=== PATIENT | male | born 1950 | race Caucasian/White ===

== ENCOUNTER 2017-02-06 07:38 | Day surgery (SDC) | payer MEDICAID, OTHER ==
[2017-02-06] MEDS ORDERED: DUREZOL OPHTH 1 DOSE AFFEYE ONE (08:00)
[2017-02-06] MEDS ORDERED: TETRACAINE 0.5% OPHTH 1 DOSE AFFEYE ONE ×4 (08:01→11:15)
[2017-02-06] MEDS ORDERED: VIGAMOX 0.5% OPHTH 1 DOSE AFFEYE ONE ×5 (08:02→11:27)
[2017-02-06] MEDS ORDERED: PROLENSA OPHTH 1 DOSE AFFEYE ONE (08:13)
[2017-02-06] MEDS ORDERED: ALPHAGAN-P OPHTH 1 DOSE AFFEYE ONE (08:14)
[2017-02-06] MEDS ORDERED: VISINE-A OPHTH 1 DOSE AFFEYE ONE (08:15)
[2017-02-06] MEDS ORDERED: AK-DILATE 2.5% OPHTH 1 DOSE OP ONE ×3 (08:16→08:20)
[2017-02-06] MEDS ORDERED: CYCLOGYL 1% OPHTH 1 DOSE OP ONE ×3 (08:16→08:20)
[2017-02-06] MEDS ORDERED: MYDRIACIL OPHTH 1 DOSE AFFEYE ONE ×3 (08:16→08:20)
[2017-02-06] MEDS ORDERED: NS 500 ML IV 500 ML IV ONE (08:17)
[2017-02-06] MEDS ORDERED: BETADINE OPHTH SOLN 5% EACHEYE ONE (10:50)
[2017-02-06] MEDS ORDERED: ADRENALINE CHL INJ IJ ONE ×2 (11:05→11:15)
[2017-02-06] MEDS ORDERED: DUOVISC IO ONE ×2 (11:06→11:15)
[2017-02-06] MEDS ORDERED: XYLOCAINE-MPF 1% IJ ONE ×2 (11:06→11:15)
[2017-02-06] MEDS ORDERED: BSS OPHTH (PLAIN) 500 ML with VANCOMYCIN HCL 500 MG VIAL 25 MG, ADRENALINE CHL INJ 1 MG IR ONE ×6 (11:06)
[2017-02-06 12:29] VITALS: BP 148/70
[2017-02-06] MEDS ORDERED: DIPRIVAN VIAL ONE (15:34)
== END 2017-02-06 11:50 | disposition home or self-care (01) ==
LOC: SURG1 07:38
PROVIDERS: ATTEND Ophthalmology
PROC: 08RK3JZ Replacement of Left Lens with Synthetic Substitute, Percutaneous Approach (ICD-10-PCS; principal; 2017-02-06 12:45)
PROC: 08DK3ZZ Extraction of Left Lens, Percutaneous Approach (ICD-10-PCS; principal; 2017-02-06 12:45)
DX: H25.12 Age-related nuclear cataract, left eye (principal); H25.042 Posterior subcapsular polar age-related cataract, left eye
CPT/HCPCS: A4217; J0170; J3370; J3490

== ENCOUNTER 2017-02-27 06:46 | Day surgery (SDC) | payer OTHER ==
[2017-02-27] MEDS ORDERED: TETRACAINE 0.5% OPHTH 1 DOSE AFFEYE ONE ×2 (07:35→09:46)
[2017-02-27] MEDS ORDERED: VIGAMOX 0.5% OPHTH 1 DOSE AFFEYE ONE ×3 (07:40→07:50)
[2017-02-27] MEDS ORDERED: PROLENSA OPHTH 1 DOSE AFFEYE ONE (07:51)
[2017-02-27] MEDS ORDERED: ALPHAGAN-P OPHTH 1 DOSE AFFEYE ONE (07:52)
[2017-02-27] MEDS ORDERED: MYDRIACIL OPHTH 1 DOSE AFFEYE ONE ×3 (07:53→07:55)
[2017-02-27] MEDS ORDERED: CYCLOGYL 1% OPHTH 1 DOSE OP ONE ×3 (07:53→07:55)
[2017-02-27] MEDS ORDERED: AK-DILATE 2.5% OPHTH 1 DOSE OP ONE ×3 (07:53→07:55)
[2017-02-27] MEDS: NS 500 ML IV 500 ML IV ONE ×2 (08:50→08:54)
[2017-02-27] MEDS ORDERED: DIPRIVAN VIAL ONE (09:45)
[2017-02-27] MEDS ORDERED: BETADINE OPHTH SOLN 5% EACHEYE ONE (09:46)
[2017-02-27] MEDS ORDERED: HIBICLENS WASH EXT ONE (09:47)
[2017-02-27] MEDS ORDERED: ADRENALINE CHL INJ IJ ONE ×2 (09:56→10:05)
[2017-02-27] MEDS ORDERED: XYLOCAINE-MPF 1% IJ ONE ×2 (09:57→10:05)
[2017-02-27] MEDS ORDERED: DUOVISC IO ONE ×2 (09:57→10:05)
[2017-02-27] MEDS ORDERED: BSS OPHTH (PLAIN) 500 ML with VANCOMYCIN HCL 500 MG VIAL 25 MG, ADRENALINE CHL INJ 1 MG IR ONE ×3 (09:58)
[2017-02-27] MEDS ORDERED: TobraDEX OPHTH SUSP 1 DOSE AFFEYE ONE (10:18)
[2017-02-27 10:38] VITALS: BP 111/53
== END 2017-02-27 10:38 | disposition home or self-care (01) ==
LOC: SURG1 06:46
PROVIDERS: ATTEND Ophthalmology
PROC: 08DJ3ZZ Extraction of Right Lens, Percutaneous Approach (ICD-10-PCS; principal; 2017-02-27 08:15)
PROC: 08RJ3JZ Replacement of Right Lens with Synthetic Substitute, Percutaneous Approach (ICD-10-PCS; principal; 2017-02-27 08:15)
DX: H25.11 Age-related nuclear cataract, right eye (principal); H25.041 Posterior subcapsular polar age-related cataract, right eye
CPT/HCPCS: A4217; J0170; J3370; J3490

== ENCOUNTER → 2017-04-17 | Outpatient (CLI) | payer OTHER ==
[2017-04-17 14:18] LABS: BASOPHILS % (AUTO) 0.7 % (0.2-1.0); EOSINOPHILS # (AUTO) 0.1 x10^3/uL (0.0-0.2); HEMATOCRIT 32.3 % (42.0-54.0); HEMOGLOBIN 11.2 g/dL (13.5-18.0); LYMPHOCYTES # (AUTO) 0.3 X10^3/uL (1.3-2.9); LYMPHOCYTES % (AUTO) 21.9 % (21.0-51.0); MEAN CORPUSCULAR HEMOGLOBIN 34.1 pg (27.0-34.0); MEAN CORPUSCULAR HGB CONC 34.8 g/dL (33.0-35.0); MEAN PLATELET VOLUME 7.2 fL (7.4-11.0); MONOCYTES # (AUTO) 0.1 x10^3/uL (0.3-0.8); MONOCYTES % (AUTO) 6.9 % (0.0-13.0); NEUTROPHILS # (AUTO) 0.9 x10^3/uL (2.2-4.8); NEUTROPHILS % (AUTO) 66.5 % (42.0-75.0); PLATELET COUNT 32 X10^3/uL (150.0-450.0); RED BLOOD COUNT 3.29 X10^6/uL (4.7-6.0)
[2017-04-17 14:30] LABS: ALBUMIN 3.2 g/dL (3.4-5.0); BILIRUBIN,DIRECT 0.26 mg/dL (0-0.2); TOTAL PROTEIN 6.2 g/dL (6.4-8.2)
[2017-04-17 14:38] LABS: PLATELET MORPHOLOGY COMMENT NORMAL (NORMAL); WHITE BLOOD COUNT 1.4 X10^3/uL (3.6-10.0)
== END ==
LOC: LAB 13:31
PROVIDERS: ATTEND Internal Medicine Gastroenterology
DX: K74.69 Other cirrhosis of liver (principal)
CPT/HCPCS: 36415; 80076; 82140; 85025